=== PATIENT | female | born 1990 | race Caucasian/White ===

== ENCOUNTER 2021-02-20 14:10 | Emergency (ER) | payer MEDICAID, SELFPAY ==
[~2021-02-20] VITALS: Ht 157.5 cm; Wt 81.6 kg
[2021-02-20 14:26] VITALS: BP_SYST 119
[2021-02-20 17:01] VITALS: BP_SYST 119
== END 2021-02-20 17:01 | disposition home or self-care (01) ==
LOC: SED 14:10
DX: U07.1 COVID-19 (principal)
CPT/HCPCS: 36415; 99283